=== PATIENT | male | born 1940 | race Caucasian/White ===

== ENCOUNTER → 2016-07-13 | Outpatient (CLI) | payer OTHER ==
[~2016-07-13] MED LIST: BLOOD PRESSURE MED; FLEXERIL10 MG PO; HYDROCODONE BIT1 T11 PO; MEDROL DOSEPAK4 MG PO; NAPROSYN500 MG PO
[2016-07-13 12:31] LABS: ALBUMIN 3.6 gm/dl (3.1-4.5); BILIRUBIN, TOTAL 0.2 mg/dl (0.2-1.0); POTASSIUM 4.4 mmol/L (3.5-5.1); TOTAL PROTEIN 8.2 gm/dL (6.4-8.2)
== END | disposition home or self-care (01) ==
LOC: LAB 11:48
PROVIDERS: Family Medicine
DX: I10 Essential (primary) hypertension (principal); E78.00 Pure hypercholesterolemia, unspecified

== ENCOUNTER → 2016-10-09 | Outpatient (CLI) | payer OTHER ==
[2016-10-09 10:54] LABS: ALBUMIN 3.4 gm/dl (3.1-4.5); BILIRUBIN, TOTAL 0.2 mg/dl (0.2-1.0); POTASSIUM 4.5 mmol/L (3.5-5.1)
== END | disposition home or self-care (01) ==
LOC: LAB 09:54
PROVIDERS: Family Medicine
DX: I12.9 Hypertensive chronic kidney disease with stage 1 through stage 4 chronic kidney disease, or unspecified chronic kidney disease (principal); N18.3 Chronic kidney disease, stage 3 (moderate); J45.909 Unspecified asthma, uncomplicated; E78.00 Pure hypercholesterolemia, unspecified; E55.9 Vitamin D deficiency, unspecified

== ENCOUNTER → 2016-10-23 | Outpatient (CLI) | payer OTHER | END | disposition home or self-care (01) | LOC: RAD 08:55 | DX: J18.9 Pneumonia, unspecified organism (principal); I70.0 Atherosclerosis of aorta; J84.10 Pulmonary fibrosis, unspecified; Z87.891 Personal history of nicotine dependence ==

== ENCOUNTER → 2016-11-15 | Outpatient (CLI) | payer OTHER | END | disposition home or self-care (01) | LOC: LAB 12:24 | DX: C61 Malignant neoplasm of prostate (principal) ==

== ENCOUNTER 2017-03-01 16:00 | Inpatient (IN) | payer OTHER ==
[~2017-03-01] VITALS: Ht 165.1 cm; Wt 77.2 kg
[2017-03-01 16:06] VITALS: BP 135/64
[2017-03-01 16:28] LABS: BASO # 0.1 10*3/uL (0.0-0.1); BASO % 0.5 % (0.0-1.0); EOS # 0.5 10*3/uL (0.0-0.4); EOS % 3.8 % (1.0-4.0); HEMOGLOBIN 13.8 g/dl (14.0-18.0); LYMPH # 2.5 10*3/uL (1.3-4.4); LYMPH % 20.7 % (27.0-41.0); MEAN CELL VOLUME 86.7 fl (80.0-94.0); MEAN CORPUSCULAR HGB 29.2 pg (27.0-31.0); MEAN CORPUSCULAR HGB CONC 33.7 g/dl (33.0-37.0); MEAN PLATELET VOLUME 10.3 fl (9.6-12.3); MONO # 0.7 10*3/uL (0.1-1.0); MONO % 5.6 % (3.0-9.0); NEUT # 8.3 10*3/uL (2.3-7.9); NEUT % 68.9 % (47.0-73.0); PLATELET COUNT AUTOMATED 267 10*3/uL (130-400); RED BLOOD COUNT 4.73 10*6/uL (4.50-5.90); RED CELL DISTRI WIDTH 13.5 % (0-14.5); WHITE BLOOD COUNT 12.1 10*3/uL (4.8-10.8)
[2017-03-01 16:46] LABS: ALBUMIN 3.8 gm/dl (3.1-4.5); ALKALINE PHOSPHATASE 133 U/L (45-117); BUN 24 mg/dl (7-24); CHLORIDE 105 mmol/L (98-107); POTASSIUM 3.9 mmol/L (3.5-5.1); SGOT/AST 20 IU/L (3-35); SGPT/ALT 34 U/L (12-78); SODIUM 141 mmol/L (136-145); TOTAL PROTEIN 8.8 gm/dL (6.4-8.2)
[2017-03-01 16:48] LABS: TROPONIN I < 0.015 ng/ml (<0.045)
[2017-03-01 17:19] VITALS: BP 156/72
--- NOTE | 2017-03-01 17:35 | NUR ---
PT IN ROOM FAMILY AT BEDSIDE NO COMPLAINTS VOICED CALL LIGHT IN REACH
--- NOTE | 2017-03-01 18:11 | NUR ---
A 76, admitted to , under the services of MARKOS Felipe DO with a diagnosis of HORTENCIA, ELEVATED BP, SEVERE SEPSIS, PNEUMONITIS. Chief complaint is SOB. Patient arrived via bed from ER. Monitor applied. Initial assessment completed. Vital signs taken and recorded. MARKOS FELIPE DO notified of admission to the unit. Orders received. See assessment for past medical history, medications and allergies. Patient and/or family oriented to unit. [facility]. Clothing/patient valuable form completed. MIKAYLA BERNAL
--- NOTE | 2017-03-01 19:07 | NUR ---
UNABLE TO VERIFY HOME MEDS PT UNSURE AND PHARMACY IS CLOSED
[2017-03-01 20:00] VITALS: BP 145/67
--- NOTE | 2017-03-01 22:52 | NUR ---
MEDICATED PT W/RESTORIL PRN PER PT REQUEST TO [facility] [employer] [facility] [employer] IN SLEEP. LIGHTS TURNED OFF. CALL LIGHT IN REACH.
--- NOTE | 2017-03-01 23:30 | NUR ---
PT RESTING QUIETLY IN BED WITH EYES CLOSED. PRN SLEEP AID EFFECTIVE.
[2017-03-02] VITALS: BP 142/67
--- NOTE | 2017-03-02 03:05 | NUR ---
24 HR chart check completed.
[2017-03-02 06:42] LABS: BASO % 0.1 % (0.0-1.0); HEMATOCRIT 35.5 % (42.0-52.0); HEMOGLOBIN 12.2 g/dl (14.0-18.0); LYMPH # 1.5 10*3/uL (1.3-4.4); LYMPH % 14.1 % (27.0-41.0); MEAN CELL VOLUME 86.2 fl (80.0-94.0); MEAN CORPUSCULAR HGB 29.6 pg (27.0-31.0); MEAN CORPUSCULAR HGB CONC 34.4 g/dl (33.0-37.0); MEAN PLATELET VOLUME 10.6 fl (9.6-12.3); MONO # 0.1 10*3/uL (0.1-1.0); MONO % 0.7 % (3.0-9.0); NEUT # 9.3 10*3/uL (2.3-7.9); NEUT % 84.6 % (47.0-73.0); PLATELET COUNT AUTOMATED 239 10*3/uL (130-400); RED BLOOD COUNT 4.12 10*6/uL (4.50-5.90); RED CELL DISTRI WIDTH 13.6 % (0-14.5)
[2017-03-02 07:09] LABS: ALBUMIN 3.1 gm/dl (3.1-4.5); CREATININE 1.63 mg/dL (0.70-1.30); PHOSPHOROUS 2.3 mg/dL (2.5-4.9); POTASSIUM 4.3 mmol/L (3.5-5.1); TOTAL PROTEIN 7.6 gm/dL (6.4-8.2)
[2017-03-02 07:16] LABS: THYROID STIM HORMONE (HS) 0.753 uIU/ml (0.358-4.75)
[2017-03-02 07:17] LABS: ACT PARTIAL THROMBO TIME 23.2 SECONDS (20.8-31.5); INTERNATIONAL NORM RATIO 0.9 (2.0-3.5)
--- NOTE | 2017-03-02 07:59 | NUR ---
Shift chart check completed.
[2017-03-02 08:00] VITALS: BP 148/72
[2017-03-02 08:20] LABS: VITAMIN D, 25-HYDROXY 27.1 ng/mL (30-100)
[2017-03-02] MEDS ORDERED: LOTREL 10-40 M1 EACH PO (10:17)
--- NOTE | 2017-03-02 10:18 | NUR ---
MEDS VERIFIED WITH [facility]
--- NOTE | 2017-03-02 10:19 | NUR ---
NOTIFIED DR GONZALEZ THAT MEDS WERE VERIFIED
[2017-03-02 12:00] VITALS: BP 154/60
[2017-03-02 16:00] VITALS: BP 128/63
[2017-03-02 20:00] VITALS: BP 130/57
--- NOTE | 2017-03-02 20:00 | NUR ---
ASSUMED CARE OF PATIENT. ASSESSMENT COMPLETE. RESTING IN BED. NO VOICED COMPLAINTS. SPUTUM CUP PROVIDED. CALL LIGHT IN REACH. WILL CONTINUE TO MONTIOR.
--- NOTE | 2017-03-02 22:42 | NUR ---
MEDICATED WITH PRN RESTORIL FOR HELP TO SLEEP. WILL MONITOR FOR EFFECTIVENESS
--- NOTE | 2017-03-02 23:30 | NUR ---
PT AWAKE IN BED WATCHING TV. NO C/O VOICED AT PRESENT. ASSUMED CARE FOR THIS PT AT THIS TIME. CALL LIGHT IN REACH.
[2017-03-03] VITALS: BP 132/65
[2017-03-03 06:28] LABS: BASO % 0.1 % (0.0-1.0); HEMATOCRIT 32.7 % (42.0-52.0); HEMOGLOBIN 10.8 g/dl (14.0-18.0); LYMPH # 1.8 10*3/uL (1.3-4.4); LYMPH % 8.6 % (27.0-41.0); MEAN CELL VOLUME 87.4 fl (80.0-94.0); MEAN CORPUSCULAR HGB 28.9 pg (27.0-31.0); MONO # 0.7 10*3/uL (0.1-1.0); MONO % 3.5 % (3.0-9.0); NEUT # 17.8 10*3/uL (2.3-7.9); NEUT % 86.5 % (47.0-73.0); PLATELET COUNT AUTOMATED 249 10*3/uL (130-400); RED BLOOD COUNT 3.74 10*6/uL (4.50-5.90); RED CELL DISTRI WIDTH 14.1 % (0-14.5); WHITE BLOOD COUNT 20.5 10*3/uL (4.8-10.8)
[2017-03-03 06:39] LABS: CREATININE 1.6 mg/dL (0.70-1.30); POTASSIUM 4.3 mmol/L (3.5-5.1)
[2017-03-03 08:00] VITALS: BP 137/69
[2017-03-03 12:00] VITALS: BP 120/50
[2017-03-03] MEDS ORDERED: DOXYCYCLINE HY100 M3 PO (12:29)
[2017-03-03] MEDS ORDERED: VITAMIN D-32000 UNI1 PO (12:29)
[2017-03-03] MEDS ORDERED: PREDNISONE10 MG PO (12:29)
--- NOTE | 2017-03-03 13:30 | NUR ---
Discharge instructions reviewed with patient/family. Patient receptive and verbalizes understanding. Follow-up care arranged. Written instructions given to patient/family. KENA SIU
--- NOTE | 2017-03-03 13:38 | NUR ---
Pt left via ambulatory.
== END 2017-03-03 13:38 | disposition home or self-care (01) | DRG 871 ==
LOC: ED 16:00 → EDHOLD 17:24 → 5E 17:41
PROVIDERS: Internal Medicine; Internal Medicine Nephrology; Nurse Practitioner Family; ADMIT Internal Medicine
DX: A41.9 Sepsis, unspecified organism (principal); J18.9 Pneumonia, unspecified organism; N17.0 Acute kidney failure with tubular necrosis; E87.2 Acidosis; D72.1 Eosinophilia; N18.3 Chronic kidney disease, stage 3 (moderate); J44.0 Chronic obstructive pulmonary disease with (acute) lower respiratory infection; D64.9 Anemia, unspecified; J44.1 Chronic obstructive pulmonary disease with (acute) exacerbation; R65.20 Severe sepsis without septic shock; Z82.3 Family history of stroke; I12.9 Hypertensive chronic kidney disease with stage 1 through stage 4 chronic kidney disease, or unspecified chronic kidney disease; M19.90 Unspecified osteoarthritis, unspecified site; Z85.46 Personal history of malignant neoplasm of prostate; Z68.28 Body mass index [BMI] 28.0-28.9, adult; Z89.022 Acquired absence of left finger(s); Z90.49 Acquired absence of other specified parts of digestive tract; Z87.891 Personal history of nicotine dependence; Z82.49 Family history of ischemic heart disease and other diseases of the circulatory system; Z79.899 Other long term (current) drug therapy; D72.810 Lymphocytopenia; R73.9 Hyperglycemia, unspecified; E66.3 Overweight

== ENCOUNTER 2017-05-12 14:39 | Inpatient (IN) | payer OTHER ==
[~2017-05-12] VITALS: Ht 165.1 cm; Wt 78.2 kg
--- NOTE | ~2017-05-12 | DS ---
[place], [place] DISCHARGE SUMMARY NAME: SHY ARREGUIN JR [facility] #: [id number] UNIT #: [id number] ROOM: 506 DOCTOR: ANICETO SINGH MD BIRTHDATE: [birth year] DOS: 05/13/2017 DISCHARGE DIAGNOSES: 1. Acute exacerbation of chronic obstructive pulmonary disease, resolved with treatment. 2. Obesity. 3. Benign essential hypertension. 4. Normocytic anemia. 5. Chronic kidney disease stage III. 6. History of prostate cancer. HOSPITAL COURSE: The patient presented to the Emergency Department with increased shortness of breath, cough and wheezing. The patient was admitted and treated with IV corticosteroids, oxygen, antibiotics and he improved quickly. The patient is feeling good now and he is breathing as well as he normally does at home. The patient was walked in the hallways and he was still saturating at 95% at room air while ambulating and he did not get short of breath. The patient is being discharged to home on tapering down dose of corticosteroids and Augmentin. LABORATORY DATA: Hemoglobin of 12, no leucocytosis, platelets normal. Chest x-ray without any acute abnormality. BUN and creatinine 23 and 1.4. Normal serum electrolytes, bilirubin, liver enzymes. DISCHARGE MANAGEMENT: Amlodipine 10 mg a day, Medrol Dosepak, Coreg 12.5 mg b.i.d., Augmentin for a week. ANICETO SINGH MD CM:CARLINE [id number] ANICETO SINGH MD 05/13/17 182 interface
--- NOTE | ~2017-05-12 | WRIGHTHP ---
[place], [place] PATIENT HISTORY AND PHYSICAL EXAM NAME: SHY ARREGUIN JR [facility] #: [id number] UNIT #: [id number] ROOM: 506 DOCTOR: ANICETO SINGH MD BIRTHDATE: [birth year] DOS: 05/12/2017 HISTORY OF PRESENT ILLNESS: The patient is a 76-year-old gentleman with a past medical history of COPD, normocytic anemia, obesity, benign essential hypertension, chronic kidney disease stage 3, osteoarthritis, prostate cancer. The patient presented to [facility] at the Emergency Department with increasing shortness of breath, starting the day before with cough and wheezing. After initial evaluation and treatment in the ER, the patient was admitted and he says his breathing is improving with bronchodilators, corticosteroids and antibiotics. The patient says he has not smoked for 25 years. No chest pain. No dizziness or fainting episode. No other GI or urinary symptoms. REVIEW OF SYSTEMS: LUNGS: With shortness of breath, wheezing and cough. GASTROINTESTINAL: No nausea, vomiting, diarrhea, constipation. CARDIOVASCULAR: No chest pain or palpitations. ALLERGIES: No known drug allergies. SOCIAL HISTORY: Denies smoking cigarettes anymore. He has a [id number] history of smoking in the past. Denies any alcohol or drug abuse. FAMILY HISTORY: Noncontributory. HOME MEDICATIONS: Amlodipine, Coreg, DuoNeb. PHYSICAL EXAMINATION: GENERAL: Alert and oriented x 3, in no visible distress, except for moderate obesity. HEENT AND NECK: Extraocular movements are intact. Sclerae are anicteric. Oral mucosa is moist and clean. No obvious facial weakness. Neck is supple without any lymphadenopathy. No thyromegaly. No JVD. No carotid arterial bruits. LUNGS: Decreased breath sounds on lung auscultation. CARDIOVASCULAR SYSTEM: Heart rate is regular in rate and rhythm. S1 and S2 normally audible. No significant murmur or any other abnormal cardiac sounds. ABDOMEN: Soft, nontender. No obvious organomegaly. Bowel sounds are present. No obvious herniation. EXTREMITIES: Without significant cyanosis or edema. Warm to touch. CENTRAL NERVOUS SYSTEM: Alert and oriented x 3. Cranial nerves II-XII are intact. Speech is normal. The patient is able to move all extremities. Normal muscle strength. Deep tendon reflexes are equal on both sides. Plantars were downgoing. LABORATORY DATA: Chest x-ray with no acute process. BUN and creatinine 23 and 1.4. Hemoglobin 13.5. IMPRESSION AND PLAN: [place], [place] PATIENT HISTORY AND PHYSICAL EXAM NAME: SHY ARREGUIN JR UNIT #: [id number] ROOM: [facility] DOCTOR: ANICETO SINGH MD BIRTHDATE: [birth year] 1. Acute exacerbation of severe underlying chronic obstructive pulmonary disease, improving with treatment with corticosteroids, bronchodilators, oxygen and antibiotics. I will continue the treatment. 2. Obesity. The patient is working with Dietary. 3. Benign essential hypertension, treated with Coreg and amlodipine. Blood pressure is being monitored and staying normal. ANICETO SINGH MD CM:HISPHYS:PATIENT HISTORY AND PHYSICAL EXAMINATION [phone] ANICETO SINGH MD [id number]/12/[id number] interface
[~2017-05-12 14:39] MED LIST changes: +DOXYCYCLINE HY100 M3 PO; +LOTREL 10-40 M1 EACH PO; +PREDNISONE10 MG PO; +VITAMIN D-32000 UNI1 PO
[2017-05-12 14:45] VITALS: BP 120/78
[2017-05-12 15:16] LABS: BASO # 0.1 10*3/uL (0.0-0.1); BASO % 0.6 % (0.0-1.0); EOS # 0.8 10*3/uL (0.0-0.4); EOS % 8.6 % (1.0-4.0); HEMOGLOBIN 13.5 g/dl (14.0-18.0); LYMPH # 2.4 10*3/uL (1.3-4.4); LYMPH % 27.1 % (27.0-41.0); MEAN CELL VOLUME 85.3 fl (80.0-94.0); MEAN CORPUSCULAR HGB 29.5 pg (27.0-31.0); MEAN CORPUSCULAR HGB CONC 34.6 g/dl (33.0-37.0); MEAN PLATELET VOLUME 9.9 fl (9.6-12.3); MONO # 0.7 10*3/uL (0.1-1.0); MONO % 7.5 % (3.0-9.0); NEUT # 4.8 10*3/uL (2.3-7.9); NEUT % 55.7 % (47.0-73.0); PLATELET COUNT AUTOMATED 299 10*3/uL (130-400); RED BLOOD COUNT 4.57 10*6/uL (4.50-5.90); RED CELL DISTRI WIDTH 13.5 % (0-14.5); WHITE BLOOD COUNT 8.7 10*3/uL (4.8-10.8)
[2017-05-12 15:25] LABS: ACT PARTIAL THROMBO TIME 23.4 SECONDS (20.8-31.5); INTERNATIONAL NORM RATIO 0.9 (2.0-3.5)
[2017-05-12 15:32] LABS: ALBUMIN 3.9 gm/dl (3.1-4.5); ALKALINE PHOSPHATASE 135 U/L (45-117); BUN 23 mg/dl (7-24); CHLORIDE 108 mmol/L (98-107); CREATININE 1.43 mg/dL (0.70-1.30); POTASSIUM 4.3 mmol/L (3.5-5.1); SGOT/AST 19 IU/L (3-35); SGPT/ALT 32 U/L (12-78); SODIUM 140 mmol/L (136-145); TOTAL PROTEIN 8.3 gm/dL (6.4-8.2)
[2017-05-12 15:34] LABS: TROPONIN I < 0.015 ng/ml (<0.045)
[2017-05-12 16:00] VITALS: BP 154/81
[2017-05-12 17:02] VITALS: BP 145/74
[2017-05-12 17:10] VITALS: BP 145/74
[2017-05-12] MEDS ORDERED: COREG12.5 M1 PO (17:30)
[2017-05-12 20:00] VITALS: BP 155/87
[2017-05-13 00:05] VITALS: BP 149/77
[2017-05-13 06:16] LABS: BASO % 0.2 % (0.0-1.0); HEMATOCRIT 34.7 % (42.0-52.0); LYMPH # 1.4 10*3/uL (1.3-4.4); LYMPH % 23.4 % (27.0-41.0); MEAN CELL VOLUME 86.1 fl (80.0-94.0); MEAN CORPUSCULAR HGB 29.8 pg (27.0-31.0); MEAN CORPUSCULAR HGB CONC 34.6 g/dl (33.0-37.0); MEAN PLATELET VOLUME 10.4 fl (9.6-12.3); MONO # 0.1 10*3/uL (0.1-1.0); MONO % 1.4 % (3.0-9.0); NEUT # 4.3 10*3/uL (2.3-7.9); NEUT % 74.5 % (47.0-73.0); PLATELET COUNT AUTOMATED 264 10*3/uL (130-400); RED BLOOD COUNT 4.03 10*6/uL (4.50-5.90); RED CELL DISTRI WIDTH 13.5 % (0-14.5); WHITE BLOOD COUNT 5.8 10*3/uL (4.8-10.8)
[2017-05-13 08:00] VITALS: BP 146/71
[2017-05-13 12:00] VITALS: BP 153/68
[2017-05-13 16:51] VITALS: BP 126/95
[2017-05-13] MEDS ORDERED: AUGMENTIN 875-875 MG PO (17:39)
[2017-05-13] MEDS ORDERED: MEDROL DOSEPAK4 MG PO (17:39)
== END 2017-05-13 18:30 | disposition home or self-care (01) | DRG 871 ==
LOC: ED 14:39 → EDHOLD 15:50 → 5E 16:05
PROVIDERS: Internal Medicine; Student in an Organized Health Care Education/Training Program
DX: A41.9 Sepsis, unspecified organism (principal); J18.9 Pneumonia, unspecified organism; D64.9 Anemia, unspecified; N18.3 Chronic kidney disease, stage 3 (moderate); J44.0 Chronic obstructive pulmonary disease with (acute) lower respiratory infection; J44.1 Chronic obstructive pulmonary disease with (acute) exacerbation; M19.90 Unspecified osteoarthritis, unspecified site; I12.9 Hypertensive chronic kidney disease with stage 1 through stage 4 chronic kidney disease, or unspecified chronic kidney disease; G89.29 Other chronic pain; E66.9 Obesity, unspecified; Z85.46 Personal history of malignant neoplasm of prostate; Z89.022 Acquired absence of left finger(s); Z90.49 Acquired absence of other specified parts of digestive tract; Z87.891 Personal history of nicotine dependence; Z82.3 Family history of stroke; Z82.49 Family history of ischemic heart disease and other diseases of the circulatory system; Z83.6 Family history of other diseases of the respiratory system; Z68.28 Body mass index [BMI] 28.0-28.9, adult

== ENCOUNTER → 2017-06-15 | Outpatient (CLI) | payer OTHER ==
[~2017-06-15] MED LIST changes: +AUGMENTIN 875-875 MG PO; +COREG12.5 M1 PO
== END | disposition home or self-care (01) ==
LOC: CT 13:39
DX: J44.9 Chronic obstructive pulmonary disease, unspecified (principal); J98.11 Atelectasis; K80.20 Calculus of gallbladder without cholecystitis without obstruction; R91.1 Solitary pulmonary nodule

== ENCOUNTER → 2017-07-13 | Outpatient (CLI) | payer OTHER | END | disposition home or self-care (01) | LOC: CP 08:13 | DX: J44.9 Chronic obstructive pulmonary disease, unspecified (principal) ==

== ENCOUNTER → 2017-07-24 | Outpatient (CLI) | payer OTHER | END | disposition home or self-care (01) | LOC: CARD 13:46 | DX: R06.02 Shortness of breath (principal); R60.9 Edema, unspecified; R60.0 Localized edema ==

== ENCOUNTER → 2018-07-04 | Outpatient (CLI) | payer OTHER ==
[~2018-07-04] MED LIST changes: +ASPIRIN81 M1 PO; +FLOMAX0.4 MG PO; +OHM ALLERGY REL10 MG PO
[2018-07-04 11:07] LABS: HEMATOCRIT 38.9 % (42.0-52.0); HEMOGLOBIN 13.3 g/dl (14.0-18.0); MEAN CELL VOLUME 87.6 fl (80.0-94.0); MEAN CORPUSCULAR HGB CONC 34.2 g/dl (33.0-37.0); MEAN PLATELET VOLUME 10.4 fl (9.6-12.3); RED BLOOD COUNT 4.44 10*6/uL (4.50-5.90); RED CELL DISTRI WIDTH 13.5 % (0-14.5); WHITE BLOOD COUNT 13.6 10*3/uL (4.8-10.8)
[2018-07-04 11:37] LABS: ALBUMIN 3.8 gm/dl (3.1-4.5); CREATININE 1.67 mg/dL (0.70-1.30); POTASSIUM 4.1 mmol/L (3.5-5.1); TOTAL PROTEIN 8.4 gm/dL (6.4-8.2)
== END | disposition home or self-care (01) ==
LOC: LAB 10:46
PROVIDERS: Family Medicine
DX: Z12.5 Encounter for screening for malignant neoplasm of prostate (principal); I12.9 Hypertensive chronic kidney disease with stage 1 through stage 4 chronic kidney disease, or unspecified chronic kidney disease; N18.3 Chronic kidney disease, stage 3 (moderate); E78.00 Pure hypercholesterolemia, unspecified; E74.9 Disorder of carbohydrate metabolism, unspecified; M19.90 Unspecified osteoarthritis, unspecified site; R05 Cough; R09.89 Other specified symptoms and signs involving the circulatory and respiratory systems; J44.9 Chronic obstructive pulmonary disease, unspecified; I10 Essential (primary) hypertension; Z87.891 Personal history of nicotine dependence; Z79.899 Other long term (current) drug therapy

== ENCOUNTER → 2018-09-23 | Outpatient (CLI) | payer OTHER ==
[2018-09-23 10:24] LABS: HEMATOCRIT 41.6 % (42.0-52.0); MEAN CELL VOLUME 88.7 fl (80.0-94.0); MEAN CORPUSCULAR HGB 29.9 pg (27.0-31.0); MEAN CORPUSCULAR HGB CONC 33.7 g/dl (33.0-37.0); MEAN PLATELET VOLUME 10.6 fl (9.6-12.3); RED BLOOD COUNT 4.69 10*6/uL (4.50-5.90); RED CELL DISTRI WIDTH 13.4 % (0-14.5); WHITE BLOOD COUNT 7.5 10*3/uL (4.8-10.8)
[2018-09-23 10:53] LABS: ALBUMIN 3.7 gm/dl (3.1-4.5); CREATININE 1.68 mg/dL (0.70-1.30); POTASSIUM 4.3 mmol/L (3.5-5.1); TOTAL PROTEIN 8.6 gm/dL (6.4-8.2)
[2018-09-24 15:08] LABS: PROSTATE SPECIFIC AG FREE 0.79 ng/mL; PROSTATE SPECIFIC AG, SERUM 5.9 ng/mL (0.0-4.0)
== END | disposition home or self-care (01) ==
LOC: LAB 09:53
PROVIDERS: Family Medicine
DX: E78.00 Pure hypercholesterolemia, unspecified (principal); E55.9 Vitamin D deficiency, unspecified; R97.20 Elevated prostate specific antigen [PSA]

== ENCOUNTER → 2018-10-15 | Outpatient (CLI) | payer OTHER ==
--- NOTE | ~2018-10-15 | ST ---
[place], [place] EXERCISE STRESS TEST REPORT [id number] UNIT #: [id number] ROOM: DOCTOR: RAY DUNHAM MD BIRTHDATE: [birth year] DOS: 10/15/2018 LEXISCAN PORTION OF THE LEXISCAN CARDIOLITE A 0.4 mg Lexiscan, duration of 10 seconds of a 1 minute test duration. Baseline cardiogram, sinus rhythm with poor R-wave progression with nonspecific ST-T changes. With Lexiscan, the patient had no chest discomfort, no dysrhythmia. Blood pressure and heart rate response was normal. Nuclear images will be reported separately. RAY DUNHAM MD CM:STRESS:EXERCISE STRESS TEST REPORT [id number] RAY DUNHAM MD
--- NOTE | 2018-10-15 07:15 | NUR ---
INFORMED CONSENT OBTAINED FOR LEXISCAN NUCLEAR STRESS TEST WITH DR. DUNHAM. RESTING EKG NSR WITH A RESTING HR OF 64 WITH BP OF 124/60. LUNGS CLEAR WITH SPO2 OF 97% ON ROOM AIR. PT COMPLETED A 1:00 LEXISCAN PROTOCOL RECEIVING LEXISCAN 0.4 MG IV OVER 10 SECONDS. HAD NO CHEST PAIN OR ANY EKG CHANGES. DID HAVE C/O FEELING OF SHORTNESS OF BREATH THAT WAS RELIEVED IN RECOVERY. HAD A PEAK HR OF 93 WITH BP OF 128/54. LAST RECOVERY HR OF 88 WITH BP OF 136/64. AWAITING SCANNING IN STABLE CONDITION.
== END | disposition home or self-care (01) ==
LOC: CARD 00:20
DX: R07.89 Other chest pain (principal); R53.81 Other malaise

== ENCOUNTER 2023-02-07 14:57 | Emergency (ER) | payer MEDICARE ==
[~2023-02-07] VITALS: Ht 165.1 cm; Wt 4.5 kg
[~2023-02-07 14:57] MED LIST changes: +AVODART0.5 M1 PO; +DONEPEZIL HYDRO10 MG PO; +ELIQUIS5 M1 PO; +OMEPRAZOLE MAGN20 MG PO
[2023-02-07] MEDS ORDERED: LIPITOR40 MG PO (15:34)
[2023-02-07] MEDS ORDERED: Sinemet Cr 25-11 TAB PO (15:35)
[2023-02-07] MEDS ORDERED: TYLENOL EXTRA500 MG PO (15:35)
[2023-02-07] MEDS ORDERED: PROAIR RESPICL90 MCG INH (15:35)
[2023-02-07] MEDS ORDERED: ASPIRIN81 M1 PO (15:36)
[2023-02-07 16:18] LABS: BASO % 0.5 % (0.0-1.0); EOS # 0.2 10*3/uL (0.0-0.4); EOS % 2.1 % (1.0-4.0); HEMATOCRIT 35.5 % (42.0-52.0); LYMPH # 1.9 10*3/uL (1.3-4.4); LYMPH % 23.8 % (27.0-41.0); MEAN CELL VOLUME 89.9 fl (80.0-94.0); MEAN CORPUSCULAR HGB 30.6 pg (27.0-31.0); MEAN CORPUSCULAR HGB CONC 34.1 g/dl (33.0-37.0); MEAN PLATELET VOLUME 10.7 fl (9.6-12.3); MONO # 0.4 10*3/uL (0.1-1.0); MONO % 5.4 % (3.0-9.0); NEUT # 5.4 10*3/uL (2.3-7.9); NEUT % 67.9 % (47.0-73.0); PLATELET COUNT AUTOMATED 239 10*3/uL (130-400); RED BLOOD COUNT 3.95 10*6/uL (4.50-5.90); RED CELL DISTRI WIDTH 13.7 % (0-14.5)
[2023-02-07 16:43] LABS: ALKALINE PHOSPHATASE 110 U/L (46-116); BUN 23 mg/dl (9-23); CHLORIDE 108 mmol/L (98-107); POTASSIUM 4.6 mmol/L (3.4-5.1); TOTAL PROTEIN 7.5 gm/dL (6.0-8.0)
[2023-02-07 17:03] LABS: SGPT/ALT < 7 U/L (5-49)
[2023-02-07 17:24] VITALS: BP 132/55
== END 2023-02-07 19:05 | disposition home or self-care (01) ==
LOC: ED 14:57
PROVIDERS: Internal Medicine
DX: R55 Syncope and collapse (principal); R11.10 Vomiting, unspecified; Z90.49 Acquired absence of other specified parts of digestive tract; Z98.890 Other specified postprocedural states; Z87.891 Personal history of nicotine dependence

== ENCOUNTER 2023-04-14 15:26 | Emergency (ER) | payer OTHER ==
[~2023-04-14 15:26] MED LIST changes: +LIPITOR40 MG PO; +PROAIR RESPICL90 MCG INH; +Sinemet Cr 25-11 TAB PO; +TYLENOL EXTRA500 MG PO
[2023-04-14 15:30] VITALS: BP 144/45
[2023-04-14 15:45] LABS: BASO # 0.1 10*3/uL (0.0-0.1); BASO % 0.7 % (0.0-1.0); EOS # 0.2 10*3/uL (0.0-0.4); EOS % 3.3 % (1.0-4.0); HEMATOCRIT 36.7 % (42.0-52.0); LYMPH % 29.4 % (27.0-41.0); MEAN CELL VOLUME 90.2 fl (80.0-94.0); MEAN CORPUSCULAR HGB 29.7 pg (27.0-31.0); MEAN PLATELET VOLUME 10.6 fl (9.6-12.3); MONO # 0.6 10*3/uL (0.1-1.0); NEUT % 58.3 % (47.0-73.0); PLATELET COUNT AUTOMATED 226 10*3/uL (130-400); RED BLOOD COUNT 4.07 10*6/uL (4.50-5.90); RED CELL DISTRI WIDTH 13.1 % (0-14.5); WHITE BLOOD COUNT 6.9 10*3/uL (4.8-10.8)
[2023-04-14 16:20] LABS: ALKALINE PHOSPHATASE 109 U/L (46-116); BUN 14 mg/dl (9-23); CHLORIDE 107 mmol/L (98-107); POTASSIUM 4.1 mmol/L (3.4-5.1); TOTAL PROTEIN 7.5 gm/dL (6.0-8.0)
[2023-04-14 16:22] LABS: SGPT/ALT < 7 U/L (5-49)
[2023-04-14] MEDS ORDERED: ONDANSETRON4 MG SL (16:55)
[2023-04-14] MEDS ORDERED: PEPCID20 MG PO (16:55)
== END 2023-04-14 17:37 | disposition home or self-care (01) ==
LOC: ED 15:26
PROVIDERS: Emergency Medicine
DX: R11.2 Nausea with vomiting, unspecified (principal); R19.7 Diarrhea, unspecified; I10 Essential (primary) hypertension; J44.9 Chronic obstructive pulmonary disease, unspecified; E78.5 Hyperlipidemia, unspecified; Z90.49 Acquired absence of other specified parts of digestive tract; Z95.5 Presence of coronary angioplasty implant and graft; Z98.890 Other specified postprocedural states; Z87.891 Personal history of nicotine dependence